=== PATIENT | female | born 1965 | race Caucasian/White ===

== ENCOUNTER 2019-09-16 23:22 | Emergency (ER) | payer BC, OTHER ==
[~2019-09-16] VITALS: Ht 160 cm; Wt 108.8 kg
--- NOTE | 2019-09-17 00:20 | ED Lower Extremity ---
General Chief Complaint: Lower Extremity Stated Complaint: KNEE PAIN Source: patient History of Present Illness Date Seen by Provider: Sep 17, 2019 Time Seen by Provider: 00:14 Initial Comments Patient with a complaint of right knee injury non-fall related to twisting motion with pain in the lateral and posterior compartments respiratory past history of prior knee problems she did not fall and has had some giveaway with this knee in the past Onset: this evening Severity: mild, moderate Pain/Injury Location: right knee Method of Injury: twisted Modifying Factors: Improves With Movement Allergies and Home Medications Patient Home Medication List Home Medication List Reviewed: Yes Review of Systems Constitutional: no symptoms reported EENTM: no symptoms reported Respiratory: no symptoms reported Cardiovascular: no symptoms reported Gastrointestinal: no symptoms reported Genitourinary: no symptoms reported Musculoskeletal: see HPI Skin: no symptoms reported Past Arhlsfx-Musqgi-Lcxwaf Hx Patient Social History Recent Foreign Travel: No Contact w/Someone Who Travel: No Physical Exam Vital Signs Vital Signs - First Documented 09/17/19 00:09 Temp 37.0 Pulse 83 Resp 18 B/P (MAP) 132/70 (90) Pulse Ox 94 O2 Delivery Room Air Capillary Refill : Height, Weight, BMI Height: '" Weight: lbs. oz. kg; BMI Method: General Appearance: no apparent distress, obese HEENT: PERRL/EOMI, normal ENT inspection Neck: full range of motion, supple Cardiovascular: regular rate, rhythm, no edema Respiratory: lungs clear, normal breath sounds, no respiratory distress Knees: bilateral knee non-tender, bilateral knee normal inspection; left knee normal range of motion; bilateral knee no evidence of injury; right knee bone tenderness, right knee pain, right knee soft tissue tenderness, right knee swelling Ankles: bilateral ankle non-tender Feet: bilateral foot non-tender Neurologic/Tendon: normal sensation, normal motor functions, normal tendon fu nctions 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, no motor/sensory deficits, alert, normal mood/affect Skin: normal color, warm/dry Progress/Results/Core Measures Results/Orders My Orders Orders - MICHAEL LOPEZ DO Knee 3 View Right (09/16/19 23:51) Ct Extremity Lower Right Wo (09/17/19 00:23) Vital Signs/I&O 09/17/19 00:09 Temp 37.0 Pulse 83 Resp 18 B/P (MAP) 132/70 (90) Pulse Ox 94 O2 Delivery Room Air Progress Progress Note : Progress Note Patient with history of knee problems meniscal injuries now that standing twisting injury with pain in the lateral compartment and the posterior compartment and physical exam shows no ligamentous laxity medial lateral is stable differential includes meniscus tear medial collateral ligament strain and radiographic studies patient be a poor candidate for a Samir splint due to her body habitus probably augment minimal weightbearing with crutches and nonsteroidal anti-inflammatory drugs and recommend orthopedic surgery follow-up Departure Impression Primary Impression: Knee pain Additional Impression: knee pain Disposition: 01 HOME, SELF-CARE Condition: Improved Departure-Patient Inst. Referrals: VALENCIA FROST APRN (PCP/Family) Primary Care Physician Patient Instructions: Knee Sprain (DC), Knee Pain Add. Discharge Instructions: Patient is advised to limit weight bearing with crutches maximal dose of anti- inflammatory medication and rest ice and orthopedic follow-up next week for advanced imaging including MRI is recommended All discharge instructions reviewed with patient and/or family. Voiced understanding. MICHAEL LOPEZ DO Sep 17, 2019 00:20
[2019-09-17] MEDS ORDERED: HYDR-3062 PO (01:20)
[2019-09-17] MEDS ORDERED: DICL100G18 TP (01:20)
[2019-09-17] MEDS ORDERED: HYDR-3820 PO (01:21)
[2019-09-17] MEDS ORDERED: IBUPROFEN 600 MG (MOTRIN) TAB PO ONE (01:30)
[2019-09-17 01:32] VITALS: BP 132/70
--- NOTE | 2019-09-17 06:51 | Diagnostic Imaging Report ---
PROCEDURE: CT right lower extremity without contrast. TECHNIQUE: Axially acquired CT was obtained through the right lower extremity without intravenous contrast. Coronal and sagittal reformations were also performed. Auto Exposure Controls were utilized during the CT exam to meet ALARA standards for radiation dose reduction. INDICATION: Knee pain. COMPARISON: None available. FINDINGS: Prepatellar subcutaneous edema and/or swelling is present. No loculated fluid within the prepatellar soft tissues to suggest bursitis. Trace knee joint effusion. Tricompartmental degenerative arthritis is noted no acute or healing fracture. No osteochondral lesion in the femoral condyles. No mineralized intra-articular bodies. IMPRESSION: 1. Anterior soft tissue swelling without acute osseous abnormality. 2. 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 Dictated by: Dictated on workstation # [id number]
--- NOTE | 2019-09-17 07:07 | Diagnostic Imaging Report ---
Right knee series. INDICATION: Knee pain. FINDINGS: Alignment of the knee appears appropriate. There are no findings of an acute fracture. There are tricompartmental osteoarthritic changes are present within the most advanced joint space loss within the patellofemoral compartment. There is no significant knee joint effusion. IMPRESSION: 1. Tricompartmental osteoarthritic changes of the right knee, most advanced within the patellofemoral compartment. Alignment normal without evidence of fracture or significant joint effusion. Dictated by: Dictated on workstation # [id number]
== END 2019-09-17 01:32 | disposition home or self-care (01) ==
LOC: ER FS 23:28
DX: M25.561 Pain in right knee (principal); X50.1XXA Overexertion from prolonged static or awkward postures, initial encounter
CPT/HCPCS: 73562; 73700